=== PATIENT | female | born 1965 | race Caucasian/White ===

== ENCOUNTER 2018-04-02 20:50 | Emergency (ER) | payer OTHER ==
[~2018-04-02] VITALS: Ht 162.6 cm; Wt 56.7 kg
[2018-04-02] MEDS ORDERED: WELLBUTRIN SR150 MG PO (21:04)
[2018-04-02] MEDS ORDERED: PREDNISONE5 MG PO (21:06)
[2018-04-02] MEDS ORDERED: NORCO 5-325 TA1 EACH PO (22:31)
--- NOTE | 2018-04-04 13:27 | EKG ---
[facility] [address] [facility] [place] [address] Signed Sinus tachycardia Right atrial enlargement Minimal voltage criteria for LVH, may be normal variant Septal infarct , age undetermined ST \T\ T wave abnormality, consider lateral ischemia Abnormal ECG No previous ECGs available Confirmed by BARRINGTON DODSON MD ([id number]) on 04/04/2018 1:27:31 PM Electronically Signed By: BARRINGTON DODSON MD 04/04/18 1327 PATIENT NAME: QUITA GALLEGOS ANN Electrocardiogram DATE OF : 63 PHYSICIAN: BARRINGTON DODSON MD REPORT #: [id number] REPORT IS CONFIDENTIAL AND NOT TO BE RELEASED WITHOUT AUTHORIZATION
== END 2018-04-02 22:45 | disposition home or self-care (01) ==
LOC: ED 20:50
DX: M25.511 Pain in right shoulder (principal); F17.200 Nicotine dependence, unspecified, uncomplicated; Z88.8 Allergy status to other drugs, medicaments and biological substances; Z79.899 Other long term (current) drug therapy; Z79.52 Long term (current) use of systemic steroids
CPT/HCPCS: 71046; 80053; 83735; 83880; 84484; 85025; 93005; 93010; 96372; 99284; J1885